=== PATIENT | male | born 1985 | race Caucasian/White ===

== ENCOUNTER 2022-08-16 12:22 | Emergency (ER) | payer OTHER ==
[~2022-08-16] VITALS: Ht 188 cm; Wt 93.0 kg
[2022-08-16] MEDS ORDERED: METHOCARBAMOL500 MG PO (13:28)
[2022-08-16] MEDS ORDERED: NAPROSYN500 MG PO (13:28)
[2022-08-16] MEDS ORDERED: ORPHENADRINE CITRATE 30 MG/ML VIAL IM ONE (13:30)
[2022-08-16] MEDS ORDERED: CYCLOBENZAPRINE HCL 10 MG TAB PO ONE (13:30)
[2022-08-16] MEDS ORDERED: HYDROCODONE/APAP 7.5MG-325MG 1 EA TAB PO PRN (13:30)
[2022-08-16] MEDS ORDERED: NAPROXEN 250 MG TAB PO ONE (13:30)
== END 2022-08-16 13:44 | disposition home or self-care (01) ==
LOC: ER 12:44
DX: M54.41 Lumbago with sciatica, right side (principal)
CPT/HCPCS: 99283; J2360